=== PATIENT | male | born 1950 | race American Indian/Alaskan Native ===

== ENCOUNTER 2019-04-08 03:29 | Emergency (ER) | payer BC, OTHER ==
[2019-04-08 04:04] LABS: Basophils % (Auto) 0.2 % (0.0-1.8); Eosinophils % (Auto) 0.1 % (0.0-4.3); Hematocrit 35.7 % (35.5-45.6); Hemoglobin 11.8 gm/dl (11.8-15.2); Lymphocytes # (Auto) 0.5 K/mm3 (1.2-5.4); Lymphocytes % (Auto) 8.2 % (13.4-35.0); Mean Corpuscular HGB Conc 33 % (32-34); Mean Corpuscular Volume 90 fl (84-94); Monocytes # (Auto) 0.5 K/mm3 (0.0-0.8); Monocytes % (Auto) 7.9 % (0.0-7.3); Platelet Count 184 K/mm3 (140-440); Red Blood Count 3.97 M/mm3 (3.65-5.03); Red Cell Distribution Width 14.4 % (13.2-15.2)
--- NOTE | 2019-04-08 04:31 | Emergency Department Report ---
HPI - General Chief Complaint: Psych Time Seen by Provider: 04/08/19 03:59 - HPI HPI: 68-year-old Cam[place] male presents to the emergency department with his sister, whom he lives with, and his friend who is translating with the need for medical evaluation. It sounds like the patient has some history of schizophrenia but is not on any psychiatric medications for at least the last 8 months. The patient has been displaying significant paranoia as well as having both auditory and visual hallucinations. The patient is convinced that there are people in his house and that people are trying to harm him and harm his sister. It has gotten to the point where the patient spends most of his time outside of the house because he is afraid to go inside. He also will not eat or drink anything. Today, the friend says that the patient asked him for a knife so that he could kill himself because he thought that his sister had any been attacked and was d ead. The patient also has a past medical history of hypertension and diabetes but has not been on any medications for this as well. ED Past Medical Hx - Past Medical History Previous Medical History?: Yes Hx Hypertension: Yes Hx Diabetes: Yes Hx Psychiatric Treatment: Yes (schizo) Additional medical history: PUD - Surgical History Past Surgical History?: No - Social History Smoking Status: Never Smoker Substance Use Type: None - Medications Home Medications: Home Medications Medication Instructions Recorded Confirmed Last Taken Type No Known Home Medications [No 04/08/19 04/08/19 Unknown History Reported Home Medications] ED Review of Systems ROS: Stated complaint: HALLUCINATION Other details as noted in HPI Comment: All other systems reviewed and negative Constitutional: denies: chills, fever Eyes: denies: eye pain, vision change ENT: denies: ear pain, throat pain Respiratory: denies: cough, shortness of breath Cardiovascular: denies: chest pain, palpitations Gastrointestinal: denies: abdominal pain, vomiting Genitourinary: denies: dysuria, frequency Musculoskeletal: denies: back pain, arthralgia Skin: denies: rash, lesions Neurological: denies: headache, weakness Psychiatric: auditory hallucinations, visual hallucinations, suicidal thoughts Physical Exam - Physical Exam Physical Exam: GENERAL: The patient is well-developed well-nourished. HENT: Normocephalic. Atraumatic. Patient has moist mucous membranes. EYES: Extraocular motions are intact. NECK: Supple. Trachea is midline. CHEST/LUNGS: Clear to auscultation. There is no respiratory distress noted. HEART/CARDIOVASCULAR: Regular. There is no tachycardia. There is no murmur. ABDOMEN: Abdomen is soft, nontender. Patient has normal bowel sounds. There is no abdominal distention. SKIN: Skin is warm and dry. NEURO: The patient is awake, alert and cooperative. The patient has no focal neurologic deficits. MUSCULOSKELETAL: There is no tenderness or deformity. There is no limitation range of motion. There is no evidence of acute injury. ED Medical Decision Making - Lab Data Result diagrams: 04/08/19 03:48 04/08/19 03:48 - Medical Decision Making This patient was brought in by his family and friend after he was exhibiting some hallucinations, paranoia and what appears to be psychosis. The patient is paranoid that someone is in his house trying to harm him and his sister. It is down to the point where he will not eat or drink much but this also continues outside the house. Today, the friend who is translating says that he witnessed the patient asking for a night so he could kill himself because he thought that his sister was killed by the intruder's, even though the patient's sister is currently standing in the room with us. For these reasons, the patient has been made a 1013. His labs were mostly unremarkable except for some hyperglycemia with a blood sugar of 300. Patient was given a dose of subcutaneous insulin and he will have Accu-Cheks with each meal and at night. His vital signs are stable throughout his ED course. Patient appears medically cleared for psychiatric placement. - Differential Diagnosis DKA, HHNK, Schizophrenia, Bipolar Disorder Critical Care Time: No Critical care attestation.: If time is entered above; I have spent that time in minutes in the direct care of this critically ill patient, excluding procedure time. ED Disposition Clinical Impression: Hyperglycemia, Suicidal ideations Schizophrenia Qualifiers: Schizophrenia type: unspecified Qualified Code(s): F20.9 - Schizophrenia, unsp ecified Disposition: DC/TX-65 PSY HOSP/PSY UNIT Is pt being admited?: No Condition: Stable Time of Disposition: 06:35
[2019-04-08 04:38] LABS: BUN/Creatinine Ratio 12; Blood Urea Nitrogen 13 mg/dL (9-20); Calcium 9.5 mg/dL (8.4-10.2); Hemolysis Index 6
[2019-04-08 04:47] LABS: Amphetamine Screen,Urine PRESUMPTIVE NEGATIVE; Benzodiazepines Screen,Urine PRESUMPTIVE NEGATIVE; Cannabinoid Screen,Urine PRESUMPTIVE NEGATIVE; Cocaine Screen,Urine PRESUMPTIVE NEGATIVE; Methadone Screen,Urine PRESUMPTIVE NEGATIVE; Opiate Screen,Urine PRESUMPTIVE NEGATIVE
[2019-04-08 04:49] LABS: Bilirubin,Urine NEG (Negative); Blood,Urine NEG (Negative); Mucus,Urine 2+ /HPF
[2019-04-08 04:53] LABS: Color,Urine Yellow (Yellow)
[2019-04-08] MEDS ORDERED: HumuLIN R SUB-Q ONE (05:05)
[2019-04-08] MEDS ORDERED: D50W (25GM) Syringe IV PRN (13:03)
--- NOTE | 2019-04-08 16:05 | Consultation ---
History of Present Illness - Reason for Consult Consult date: 04/08/19 Reason for consult: Mental Health Evaluation Requesting physician: SIXTO CAPONE - Chief Complaint Chief complaint: "I was scared" - History of Present Psychiatric Illness 68-year-old male who presented to the ER for bizarre behavior. Judie was used as a master in chancery. Today the patient was calm and cooperative during the assessment. He stated that he felt like someone was going to attack him at home, so he asked his sister for a knife to kill himself. He stated that he heard voices telling him "negative and positive things" prior to him wanting to kill himself. He stated that the voices are "decreasing some." He stated that he have no taken his psy medications since April 2018. He could not ID his medications when asked, he stated, "My sister can help you with that." He acknowledged being depressed, but cannot explain why. He denies SI/HI's and VH's. He denies erratic sleep and a poor appetite. He denies recreational drug use and alcohol consumption (etoh). Medications and Allergies Allergies Allergy/AdvReac Type Severity Reaction Status Date / Time No Known Allergies Allergy Verified 04/08/19 03:36 Home Medications Medication Instructions Recorded Confirmed Last Taken Type No Known Home Medications [No 04/08/19 04/08/19 Unknown History Reported Home Medications] Active Meds: Active Medications Dextrose (D50w (25gm) Syringe) 50 ml IV PRN PRN PRN Reason: Hypoglycemia Insulin Human Regular (Humulin R) 0 units SUB-Q ACHS JAGJIT; Protocol Past psychiatric history - Past Medical History Past Medical History: diabetes, hypertension Past Surgical History: No surgical history - past Psychiatric treatment and history psychiatric treatment history: Hx of mental health per the patient. He cannot confirm or deny a fam psy hx. - Social History Social history: lives with family Mental Status Exam - Vital signs Last Vital Signs Temp 98.4 F 04/08/19 08:55 Pulse 92 H 04/08/19 08:55 Resp 18 04/08/19 08:55 BP 125/72 04/08/19 08:55 Pulse Ox 99 04/08/19 08:55 - Exam Narrative exam: MSE: Appearance: calm, cooperative Behavior: regular eye contact Speech: regular rate and tone Mood: "depressed" Affect: congruent to mood Thought Process: circumstantial Thought Content: denies SI/HI's and VH's, intermittent AH's , some paranoia Motor Activity: sitting up in the bed Cognition: A/O x 3 Insight: variable Judgment: variable Results Result Diagrams: 04/08/19 03:48 04/08/19 03:48 Abnormal lab results 04/08/19 04/08/19 04/08/19 Range/Units 03:48 03:48 03:48 Lymph % (Auto) (13.4-35.0) % Treasure % (Auto) (0.0-7.3) % Lymph # (1.2-5.4) K/mm3 Seg Neutrophils % (40.0-70.0) % Sodium 134 L (137-145) mmol/L Chloride 95.0 L (98-107) mmol/L Glucose 301 H (75-100) mg/dL POC Glucose (70-105) Salicylates < 0.3 L (2.8-20.0) mg/dL Acetaminophen < 5.0 L (10.0-30.0) ug/mL 04/08/19 04/08/19 04/08/19 Range/Units 03:48 09:43 12:04 Lymph % (Auto) 8.2 L (13.4-35.0) % Treasure % (Auto) 7.9 H (0.0-7.3) % Lymph # 0.5 L (1.2-5.4) K/mm3 Seg Neutrophils % 83.6 H (40.0-70.0) % Sodium (137-145) mmol/L Chloride (98-107) mmol/L Glucose (75-100) mg/dL POC Glucose 218 H 196 H (70-105) Salicylates (2.8-20.0) mg/dL Acetaminophen (10.0-30.0) ug/mL All other labs normal. Assessment and Plan Assessment and plan: Impression: Unspecified Mood DO with psy features. Today the patient was calm and cooperative during the assessment. DDx: MDD with psychosis, Bipolar DO, Schizoaffective DO Recommendation/Plan: Continue 1013 and gather collateral information to help de termine proper treatment (contact family) Dispo: The patient was referred to inpatient psy services. Staffed with Dr Deni Puente.
[2019-04-08] MEDS: HumuLIN R SUB-Q SCH ×2 (17:52→22:15)
[2019-04-09] MEDS: HumuLIN R SUB-Q SCH ×4 (09:14→21:59)
[2019-04-09] MEDS ORDERED: ATIVAN IM ONE (11:57)
[2019-04-09] MEDS ORDERED: ATIVAN ONE (12:00)
--- NOTE | 2019-04-09 14:44 | Progress Note ---
Subjective - Reason for Consult Consult date: 04/09/19 Reason for consult: Psychiatric Follow-up Evaluation - Chief Complaint Chief complaint: "Better" Patient is a 68-year-old male who presented to the ER for bizarre behavior. Judie was used as a masonry supervisor. Today the patient is calm and cooperative during the assessment. He endorses auditory hallucinations, visual hallucinations, paranoid delusions, depressed mood, and anxiety. He verbalizes positive/negative auditory hallucinations. For example, " they tell me not to get up, stay in bed all day, and to exercise." He reports visual hallucinations of figures/obstacles. Also, patient states that he is paranoid of others that speak with him. He presents with appropriate energy, appetite, and decrease sleep. Per masonry supervisor patient was last compliant with medication in . Once patient was no longer employed, he lost his insurance, and couldn't afford his medication. Unable to recall last psychiatric medication. He denies SI/HI's. Mental Status Exam - Vital signs Last Vital Signs Temp 98.8 F 04/09/19 11:00 Pulse 83 04/09/19 11:00 Resp 18 04/09/19 11:00 BP 156/87 04/09/19 11:00 Pulse Ox 96 04/09/19 11:00 - Exam Narrative exam: Mental Status Exam: Appearance: calm, cooperative Behavior: regular eye contact Speech: regular rate and tone Mood: "better" ; depressed/anxious Affect: congruent to mood Thought Process: circumstantial Thought Content: denies SI/HI's; + A/VH's, paranoid delusions Motor Activity: ambulatory Cognition: A/O x 3 Insight: variable Judgment: variable Assessment and Plan Impression: Unspecified Mood DO with psy features. Today the patient is calm and cooperative during the assessment. He endorses depressed mood, anxiety, and psychosis. DDx: MDD with psychosis, Bipolar DO, Schizoaffective DO Recommendation/Plan: 1. Continue 1013. 2. Will attempt to contact sisterKasandra to gain collateral, and gather collateral information to help determine proper treatment (contact family). Consent given via patient. Attempted to contact patient's sister at [phone] and [phone], 6:38pm, no answer. 3. Will start Risperdal 0.5mg po BID mood/psychosis. Discussed possible metabolic side effects. Patient verbalizes some understanding. Disposition: The patient was referred to inpatient psychiatric services. Staffed with Dr Deni Puente.
[2019-04-09] MEDS: RisperDAL PO SCH (22:04)
[2019-04-10] MEDS: HumuLIN R SUB-Q SCH ×4 (08:03→22:42)
[2019-04-10] MEDS: RisperDAL PO SCH ×2 (11:00→21:50)
--- NOTE | 2019-04-10 14:06 | Progress Note ---
Subjective - Reason for Consult Consult date: 04/10/19 Reason for consult: Psychiatry Follow-up - Chief Complaint Chief complaint: "Someone is still trying to kill me" 68-year-old male who presented to the ER for bizarre behavior. Judie was used as a anchorman. Today the patient was calm and cooperative during the assessment. He continue to state someone is trying to kill him. He stated that the voices are somewhat active at this time. He denies HI's and VH's. He would not confirm or deny SI's. He denies any side effects of his medication. Mental Status Exam - Vital signs Last Vital Signs Temp 98.0 F 04/10/19 08:00 Pulse 109 H 04/10/19 08:00 Resp 20 04/10/19 08:00 BP 118/80 04/10/19 08:00 Pulse Ox 98 04/10/19 08:00 - Exam Narrative exam: MSE: Appearance: calm, cooperative Behavior: regular eye contact Speech: regular rate and tone Mood: "depressed" Affect: congruent to mood Thought Process: circumstantial Thought Content: denies HI's and VH's, paranoia Motor Activity: sitting up in the bed Cognition: A/O x 3 Insight: variable Judgment: variable Assessment and Plan Impression: Unspecified Mood DO with psy features. Today the patient was calm and cooperative during the assessment. The patient is paranoid. DDx: MDD with psychosis, Bipolar DO, Schizoaffective DO Recommendation/Plan: Continue 1013 and Risperdal 0.5 mg Po BID for psychosis/mood. Discussed possible metabolic side effects of Risperdal witg the patient, he verbalized understanding. Dispo: The patient was referred to inpatient psy services. Will staff with Dr Deni Puente.
[2019-04-10] MEDS ORDERED: ATIVAN ONE (19:44)
[2019-04-10] MEDS ORDERED: ATIVAN IM ONE (19:46)
[2019-04-10] MEDS: GLUCOPHAGE PO SCH (21:50)
[2019-04-11] MEDS: HumuLIN R SUB-Q SCH ×5 (08:26→22:21)
--- NOTE | 2019-04-11 10:07 | Progress Note ---
Subjective - Reason for Consult Consult date: 04/11/19 Reason for consult: Psychiatry Follow-up - Chief Complaint Chief complaint: "They are still following me" 68-year-old male who presented to the ER for bizarre behavior. The casino slot supervisor line was used (vegetable washing machine operator number [id number]). Today the patient was calm and cooperative during the assessment. Overall, the patient's presentation have not changed. He continue to state that someone is following him. He did state that he isn't sleeping at night. He denies HI's and VH's. He would not confirm or deny AH's. He denies any side effects of his medication. Mental Status Exam - Vital signs Last Vital Signs Temp 98.6 F 04/11/19 07:45 Pulse 65 04/11/19 07:45 Resp 18 04/11/19 07:45 BP 134/76 04/11/19 07:45 Pulse Ox 98 04/11/19 07:45 - Exam Narrative exam: MSE: Appearance: calm, cooperative Behavior: regular eye contact Speech: regular rate and tone Mood: "I'm concerned" Affect: congruent to mood Thought Process: circumstantial Thought Content: denies HI's and VH's, paranoia Motor Activity: sitting up in the bed Cognition: A/O x 3 Insight: variable Judgment: variable Assessment and Plan Impression: Unspecified Mood DO with psy features. Today the patient was calm and cooperative during the assessment. The patient continue to be paranoid. DDx: MDD with psychosis, Bipolar DO, Schizoaffective DO Recommendation/Plan: Continue 1013 and increase Risperdal to 1 mg PO BID for psychosis/mood and start Melatonin 5 mg PO HS for sleep. Discussed possible metabolic side effects of Risperdal with the patient, he verbalized understanding. Dispo: The patient was referred to inpatient psy services. Will staff with Dr Deni Puente.
[2019-04-11] MEDS: GLUCOPHAGE PO SCH ×2 (10:47→22:37)
[2019-04-11] MEDS: RisperDAL PO SCH ×3 (10:48→22:37)
[2019-04-11] MEDS: MELATONIN PO SCH (22:37)
[2019-04-12] MEDS: HumuLIN R SUB-Q SCH ×4 (08:00→22:07)
--- NOTE | 2019-04-12 08:55 | Progress Note ---
Subjective - Reason for Consult Consult date: 04/12/19 Reason for consult: Psychaitry Follow-up - Chief Complaint Chief complaint: "Hello" 68-year-old male who presented to the ER for bizarre behavior. The mover line was used (blade operator number [id number]). Today the patient was calm and cooperative during the assessment. He continue to be afraid that someone will kill him. He denies SI/HI's and AVH's. He denies any side effects of his medication. Mental Status Exam - Vital signs Last Vital Signs Temp 98.6 F 04/12/19 02:00 Pulse 80 04/12/19 02:00 Resp 16 04/12/19 02:00 BP 124/71 04/12/19 02:00 Pulse Ox 98 04/12/19 02:00 - Exam Narrative exam: MSE: Appearance: calm, cooperative Behavior: regular eye contact Speech: regular rate and tone Mood: "okay" Affect: flat Thought Process: circumstantial Thought Content: denies HI's and VH's, paranoia Motor Activity: sitting up in the bed Cognition: A/O x 3 Insight: variable Judgment: variable Assessment and Plan Impression: Unspecified Mood DO with psy features. Today the patient was calm and cooperative during the assessment. The patient continue to be paranoid. DDx: MDD with psychosis, Bipolar DO, Schizoaffective DO Recommendation/Plan: Continue 1013 and increase Risperdal to 1 mg PO BID for psychosis/mood and Melatonin 5 mg PO HS for sleep. Discussed possible metabolic side effects of Risperdal with the patient, he verbalized understanding. Dispo: The patient was accepted at [facility] for inpatient psy services pending transport time. Will staff with Dr Deni Puente.
[2019-04-12] MEDS: RisperDAL PO SCH ×2 (11:00→22:07)
[2019-04-12] MEDS: GLUCOPHAGE PO SCH ×2 (11:13→22:06)
[2019-04-12] MEDS ORDERED: GEODON IM ONE (21:52)
[2019-04-12] MEDS: MELATONIN PO SCH (22:07)
[2019-04-13] MEDS: HumuLIN R SUB-Q SCH ×4 (08:09→23:34)
[2019-04-13] MEDS ORDERED: COGENTIN PO ONE (09:00)
[2019-04-13] MEDS: RisperDAL PO SCH ×2 (10:00→23:34)
[2019-04-13] MEDS: GLUCOPHAGE PO SCH ×2 (10:00→23:34)
--- NOTE | 2019-04-13 10:44 | Progress Note ---
Subjective - Reason for Consult Consult date: 04/13/19 Reason for consult: Psychiatry Follow-up - Chief Complaint Chief complaint: "Hello" 68-year-old male who presented to the ER for bizarre behavior. The promotions officer line was used (distillation operator number [id number]). Today the patient was calm and cooperative during the assessment. He continue to be paranoid. He is adamant that someone will try to kill him. Mild to moderate involuntary movements was no ticed during the interview. He denies SI/HI's and VH's. He would no confirm or deny AH's. Mental Status Exam - Vital signs Last Vital Signs Temp 98.3 F 04/13/19 08:29 Pulse 83 04/13/19 08:29 Resp 18 04/13/19 08:29 BP 120/67 04/13/19 08:29 Pulse Ox 97 04/13/19 08:29 - Exam Narrative exam: MSE: Appearance: calm, cooperative Behavior: regular eye contact Speech: regular rate and tone Mood: "okay" Affect: flat Thought Process: circumstantial Thought Content: denies SI/HI's and VH's, paranoia Motor Activity: mild to moderate involuntary movements Cognition: A/O x 3 Insight: variable Judgment: variable Assessment and Plan Impression: Unspecified Mood DO with psy features. Today the patient was calm and cooperative during the assessment. The patient continue to be paranoid. DDx: MDD with psychosis, Bipolar DO, Schizoaffective DO Recommendation/Plan: Continue 1013 and Risperdal 1 mg PO BID for psychosis/mood and Melatonin 5 mg PO HS for sleep. Cogentin 1 mg PO once for EPS. Start Cogentin 0.5 mg Po BID for EPS prevention. Discussed possible metabolic side effects of Risperdal with the patient, he verbalized understanding. Dispo: The patient was accepted at [facility] for inpatient psy services pending transport time. Will staff with Dr Deni Puente.
[2019-04-13] MEDS ORDERED: COGENTIN PO SCH (22:00)
[2019-04-13] MEDS: MELATONIN PO SCH (23:34)
[2019-04-14 00:06] VITALS: BP 102/59
== END 2019-04-14 01:54 ==
LOC: ED 03:29 → EEVIPCON 03:29 → ED 04-14 01:54
DX: F20.9 Schizophrenia, unspecified (principal); F39 Unspecified mood [affective] disorder; E11.65 Type 2 diabetes mellitus with hyperglycemia; I10 Essential (primary) hypertension
CPT/HCPCS: 36415; 80048; 80307; 81001; 82962; 85025; G0480; J2060; J3486; 80320; 96372; J1815